=== PATIENT | male | born 1975 | race African-American/Black ===

== ENCOUNTER 2017-05-27 18:26 | Emergency (ER) | payer SELFPAY ==
[~2017-05-27] VITALS: Ht 177.8 cm; Wt 81.6 kg
[2017-05-27 19:32] LABS: microscopic required? NO
[2017-05-27 19:37] LABS: BASOPHIL % 0.2 % (0-2); PLATELET COUNT 318 x10^3mcL (130-400)
[2017-05-27 19:40] LABS: RED CELL DISTRIBUTION WIDTH 17.4 % (11.5-14.5)
[2017-05-27 19:40] LABS: UA SPECIFIC GRAVITY 1.015 (1.005-1.035); urine erythrocyte NEGATIVE (NEGATIVE)
[2017-05-27 19:45] LABS: CALCIUM 8.9 mg/dL (8.5-10.1); CARBON DIOXIDE 20.9 mmol/L (21-32); CHLORIDE SERUM 104 mmol/L (98-107); CREATININE SERUM 1.1 mg/dL (0.7-1.3); GFR1 > 60 mL/min; GLUCOSE SERUM 113 mg/dL (74-106); POTASSIUM SERUM 3.8 mmol/L (3.5-5.1); SODIUM SERUM 139 mmol/L (136-145)
[2017-05-27 19:50] LABS: ALBUMIN 3.7 g/dL (3.4-5.0); ALKALINE PHOSPHATASE 76 U/L (46-116); ALT/SGPT 15 U/L (16-63); AMYLASE 30 U/L (25-115); AST/SGOT 14 U/L (15-37); BILIRUBIN TOTAL 1.46 mg/dL (0.20-1.00); LIPASE 64 IU/L (73-393); TOTAL PROTEIN, SERUM 7.4 g/dL (6.4-8.2)
[2017-05-27 20:18] LABS: AMPHETAMINE QUAL UR POSITIVE (NEG <=1000)
[2017-05-28 01:00] VITALS: BP 143/76
== END 2017-05-28 01:00 | disposition home or self-care (01) ==
LOC: ED 18:26
PROVIDERS: Emergency Medicine
DX: T18.5XXA Foreign body in anus and rectum, initial encounter (principal); X58.XXXA Exposure to other specified factors, initial encounter; Y93.89 Activity, other specified; Y99.8 Other external cause status; Y92.89 Other specified places as the place of occurrence of the external cause
CPT/HCPCS: 83880; J1885; J2405; J2704; J3010; J3490; J7030